=== PATIENT | male | born 1940 | race Caucasian/White ===

== ENCOUNTER 2020-05-30 18:34 | Inpatient (IN) ==
[2020-05-30] MEDS ORDERED: SENNOSIDES 1 TABLET PO PRN (19:05)
[2020-05-30] MEDS ORDERED: 0.9 % SODIUM CHLORIDE 1,000 ML IV ONE (19:05)
[2020-05-30] MEDS ORDERED: ONDANSETRON 4 MG/2 ML VIAL IV PRN (19:05)
[2020-05-30] MEDS ORDERED: LACTULOSE 20 GM/30 ML ORAL.SOL PO PRN (19:05)
[2020-05-30] MEDS ORDERED: CIPROFLOXACIN 400 MG/200 ML BAG IV SCH (20:30)
[2020-05-30] MEDS: 0.9 % SODIUM CHLORIDE 1,000 ML IV SCH (20:39)
[2020-05-30 20:45] LABS: Thyroid Stimulating Hormone 3.94 uIU/mL (0.27-5.01)
--- NOTE | 2020-05-30 20:48 | Internal Med History&Physical ---
HPI History of Present Illness Patient information: Note initiated : 05/30/20 at 8:37 pm Service Date, if different from initiated Date: [] Patient: Clemenet Boyer 79 y/o M admitted on 05/30/20 for chronic pylonephritis. Chief Complaint: [weight loss] History of present illness: Mr. Boyer is a 79 year old male with a history of coronary artery disease status post CABG, colon cancer status post chemotherapy and resection and colostomy placement, chronic Hickman catheter for urinary retention, peripheral vascular disease, hypothyroidism who was sent to the [facility] emergency department for evaluation of a 40 to 50 pound unintentional weight loss over the last year. In the emergency department, there was concern for possible pyelonephritis, possible ureteral stone. The patient was transferred to [facility] for possible urologic intervention. Per the available records, work-up in the ED was remarkable for leukocytosis, acute kidney injury, urinalysis positive for leukocyte esterase and moderate urine bacteria, negative for nitrates. The source of the urinalysis is on clear, the patient does have a Hickman catheter and bag. He does not recall when the Hickman catheter was last exchanged. Reportedly, a CT abdomen and pelvis was done in the ED however the report did not accompany the patient. On arrival to [facility], the patient is afebrile but does have a high-grade temperature. Respiratory rate in the 20s saturating on room air, the patient does not appear to be in any distress. Vitals otherwise unremarkable. The patient appears cachectic. He lives alone in the [place] and follows at the [facility] for primary care. The patient says that about 3 months ago he lost his appetite. Since then his weight loss has accelerated. Patient denies abdominal pain however says he does have chronic epigastric discomfort. There does not appear to be any association with food. He denies fevers and night sweats but says he often gets chilled. He also says that he has been feeling more short of breath recently, it does appear to be worse when he is lying flat. Chest x-ray report from [facility] did not show any acute process. Review of systems Constitutional: positive for unintentional weight loss and fatigue, no fevers Eyes: no vision changes or pain Cardiovascular: no chest pain, no palpitations Respiratory: positive for dyspnea, no cough Gastrointestinal: positive for lack of appetite, no abdominal pain Genitourinary: has chronic hickman catheter Musculoskeletal: no arthralgia or myalgia Integumentary: no skin lesion or wound Neurological: no focal weakness or numbness Psychiatric: no anxiety or depression PFSH PFSH All Active Problems (Updated 05/30/20 @ 20:35 by Sathish Buchanan MD) Decubitus ulcer (Acute) Dyspnea (Acute) Acute kidney injury (Acute) Leukocytosis (Acute) Failure to thrive (Acute) Medical History (Updated 05/30/20 @ 20:35 by Sathish Buchanan MD) Colon cancer Coronary artery disease Peripheral vascular disease Surgical History (Updated 05/30/20 @ 20:34 by Sathish Buchanan MD) Hx of CABG Family History (Updated 05/30/20 @ 20:37 by Sathish Buchanan MD) Father Coronary artery disease Mother Leukemia Coronary artery disease Social History (Updated 05/30/20 @ 20:37 by Sathish Buchanan MD) smoking status: Former smoker MEDS/ALLERGIES Home Medications and Allergies Allergies Allergy/AdvReac Type Severity Reaction Status Date / Time Cephalosporins Allergy Unknown Unverified 09/08/14 20:01 No to Iodine Allergy Unknown Unknown Uncoded 09/08/14 20:01 No to Latex Allergy Unknown Uncoded 09/08/14 20:01 EXAM Constitutional Vitals: Temp Pulse Resp BP Pulse Ox 100 F H 83 26 H 149/77 99 05/30/20 20:01 05/30/20 20:01 05/30/20 20:01 05/30/20 20:01 05/30/20 20:01 Additional findings Additional findings: General: appears cachectic, no distress Head: Atraumatic, normal inspection. Eyes: normal appearance, no scleral icterus. Neck: full ROM Respiratory: no respiratory distress. Cardiovascular: sternotomy scar, normal rate and rhythm, S1, S2. GI/Abdominal: multiple surgical scars, colostomy present, soft, nontender, no guarding. Extremities: full range of motion, nontender, decubitus wound present on buttock. Neurological: CN II-XII intact, intact motor, intact sensation. Psychiatric: normal mood. Skin: warm, normal color DATA Data Completed and Pending Labs: Labs from last 24 hours 05/30/20 05/30/20 13:35 13:35 C-Reactive Protein 26.40 H TSH Pending A/P Narrative A/P Narrative: Assessment: 79 year old male with a history of CAD s/p CABG, hypothyroidism, colon cancer s/p chemotherapy and surgical resection w/ colostomy placement in the (no known recurrence), peripheral vascular disease (reported stents), who has a chronic Hickman catheter for urinary retention presented to the [facility] ED for unintentional weight loss (over 40 lbs in the last year) and subsequently transferred to [facility] for concern of possible pyelonephritis and a possible ureteral stone. The patient may have a UTI but this would be an atypical presentation for pyelonephritis. It is also possible the urine sample at the ED was contaminated since he has a hickman catheter. A UTI would not explain his weight loss, lack of appetite, and fatigue that have progressed over the last several months. #Failure to thrive #Possible UTI #Acute kidney injury: unknown baseline renal function #Leukocytosis #Dyspnea #CAD s/p CABG #Hx of colon cancer s/p chemotherapy and resection #Hx of colostomy #Hx chronic hickman catheter #Hypothyroidism #Decubitus pressure wound Plan -Obtain clean urine sample for UA and urine culture. -Blood cultures. -Zosyn for now d/t high risk of MDRO. -IV fluid-monitor for volume overload. -Follow renal function and urine output. -TSH -Follow CBC -TTE ECHO -Medication reconciliation-resume home meds when clarified. -Review CT scan report when available. -DVT ppx: heparin -Disposition: TBD Time Spent With Patient Time: Total time spent is greater than 50% in coordination of care (as documented) at patient's floor/unit and/or counseling patient: 70
[2020-05-30] MEDS: DOCUSATE SODIUM 100 MG CAPSULE PO SCH (20:58)
[2020-05-30 21:46] LABS: Albumin 3.4 gm/dL (3.2-5.2); Blood Urea Nitrogen 29 mg/dL (8-23); Calcium 8.5 mg/dL (8.6-10.4); Carbon Dioxide 22 mmol/L (22-30); Chloride 95 mmol/L (96-108); Glomerular Filtration Rate 37; Glucose 96 mg/dL (70-105); Phosphorous 2.6 mg/dL (2.5-4.5)
[2020-05-30] MEDS ORDERED: POTASSIUM CHLORIDE 20 MEQ TABLET PO ONE ×3 (22:26→22:57)
[2020-05-30] MEDS ORDERED: 0.9 % SODIUM CHLORIDE 500 ML IV ONE (22:27)
[2020-05-30] MEDS: 0.9 % SODIUM CHLORIDE 10 ML SYRINGE IV SCH (23:03)
[2020-05-30] MEDS: PIPERACILLIN SODIUM/TAZOBACTAM 3.375 GM in DEXTROSE 5% IN WATER 50 ML IV SCH (23:39)
[2020-05-31] MEDS: PIPERACILLIN SODIUM/TAZOBACTAM 3.375 GM in DEXTROSE 5% IN WATER 50 ML IV SCH (05:30)
[2020-05-31] MEDS: 0.9 % SODIUM CHLORIDE 1,000 ML IV SCH ×4 (05:35→21:55)
[2020-05-31] MEDS: 0.9 % SODIUM CHLORIDE 10 ML SYRINGE IV SCH ×3 (05:35→22:32)
[2020-05-31 06:43] LABS: Basophils # (Auto) 0.01 K/mcL (0.00-0.20); Basophils % (Auto) 0.1 % (0.0-2.0); Eosinophils # (Auto) 0 K/mcL (0.00-0.70); Eosinophils % (Auto) 0 % (0.0-7.0); Hematocrit 35.4 % (41.0-55.0); Hemoglobin 11.7 g/dL (13.5-16.5); Lymphocytes # (Auto) 0.12 K/mcL (1.50-4.80); Lymphocytes % (Auto) 0.8 % (15.0-49.0); Mean Cell Volume 93.9 fL (80.0-100.0); Mean Corpuscular HGB Conc 33.1 g/dL (31.0-36.0); Mean Platelet Volume 10.7 fL (7.4-10.4); Monocytes # (Auto) 0.47 K/mcL (0.10-0.90); Monocytes % (Auto) 3.2 % (1.0-12.0); Neutrophils % (Auto) 95.9 % (38.0-78.0); Platelet Count 129 K/mcL (140-440); RBC 3.77 M/mcL (4.50-5.90); Red Cell Distribution Width 13.9 % (11.5-14.5); WBC 14.7 K/mcL (4.5-11.0)
[2020-05-31 06:45] LABS: Appearance,Urine Cloudy (Clear); Bacteria,Urine FEW /hpf (0); Bilirubin,Urine Negative (Negative); Color,Urine Yellow; Culture Indicated,Urine yes; Glucose,Urine (UA) Negative (Negative); Ketones,Urine Negative (Negative); Leukocyte Esterase,Urine 3+(Large) /ug (Negative); Nitrate,Urine Negative (Negative); PH,Urine 6.5 (5.0-9.0); Protein,Urine 100 mg/dL (Negative); Urine Blood 3+(Large) ery/mcL (Negative); Urine RBC 58 /hpf (0-3); Urine Squamous Epithelial Cell 2 /hpf (0-4); Urine Transitional Epi Cells 2 /hpf (0-2); Urine WBC > 182 /hpf (0-4); Urobilinogen,Urine Normal
[2020-05-31 07:14] LABS: ALT/SGPT 10 U/L (<40); AST/SGOT 39 U/L (<40); Albumin 2.6 gm/dL (3.2-5.2); Albumin/Globulin Ratio 0.6 (1.0-2.3); Alkaline Phosphatase 88 U/L (39-117); Bilirubin,Direct < 0.2 mg/dL (<0.3); Bilirubin,Total 0.5 mg/dL (0.1-1.0); Blood Urea Nitrogen 26 mg/dL (8-23); Calcium 8.1 mg/dL (8.6-10.4); Carbon Dioxide 18 mmol/L (22-30); Chloride 102 mmol/L (96-108); Globulin 4.2 gm/dL (2.2-3.7); Glomerular Filtration Rate 34; Glucose 80 mg/dL (70-105); Lactate Dehydrogenase 332 U/L (135-225); Phosphorous 2.8 mg/dL (2.5-4.5); Triglycerides 98 mg/dL (<150); Uric Acid 5.4 mg/dL (2.5-8.0)
[2020-05-31] MEDS ORDERED: MAGNESIUM SULFATE 2 GM/50 ML BAG IV ONE (08:17)
[2020-05-31] MEDS: HEPARIN 5,000 UNIT/ML VIAL SQ SCH ×2 (08:45→21:42)
[2020-05-31] MEDS: DOCUSATE SODIUM 100 MG CAPSULE PO SCH ×2 (08:48→21:43)
--- NOTE | 2020-05-31 11:47 | Internal Med Progress Note ---
SUBJECTIVE Subjective Patient information: Note initiated : 05/31/20 at 11:40 am Service Date, if different from initiated Date: [] Patient: Clemente Boyer 79 y/o M admitted on 05/30/20 for chronic pylonephritis. Chief Complaint: [] Principal diagnosis: Failure to thrive Interval history: Mr. Boyer is a 79 year old male with a history of coronary artery disease status post CABG, colon cancer status post chemotherapy and re section and colostomy placement, chronic Hickman catheter for urinary retention, peripheral vascular disease, hypothyroidism who was sent to the [facility] emergency department for evaluation of a 40 to 50 pound unintentional weight loss over the last year. In the emergency department, there was concern for possible pyelonephritis, possible ureteral stone. The patient was transferred to [facility] for possible urologic intervention. Per the available records, work-up in the ED was remarkable for leukocytosis, acute kidney injury, urinalysis positive for leukocyte esterase and moderate urine bacteria, negative for nitrates. The source of the urinalysis is on clear, the patient does have a Hickman catheter and bag. He does not recall when the Hickman catheter was last exchanged. Reportedly, a CT abdomen and pelvis was done in the ED however the report did not accompany the patient. On arrival to [facility], the patient is afebrile but does have a high-grade temperature. Respiratory rate in the 20s saturating on room air, the patient does not appear to be in any distress. Vitals otherwise unremarkable. The patient appears cachectic. He lives alone in the [place] and follows at the [place] for primary care. The patient says that about 3 months ago he lost his appetite. Since then his weight loss has accelerated. Patient denies abdominal pain however says he does have chronic epigastric discomfort. There does not appear to be any association with food. He denies fevers and night sweats but says he often gets chilled. He also says that he has been feeling more short of breath recently, it does appear to be worse when he is lying flat. Chest x-ray report from [facility] did not show any acute process. 05/31 Feels a little better, had a fever this morning, hemodynamically stable. Reviewed CT scan report from [facility]-severe right hydronephrosis and hydroureter without evidence of obstructing stone. Urology consulted and will consider a scope for tomorrow for possible stent for hydronephrosis. Ok for diet today. Constitutional Vitals: Vital Signs Temp Pulse Resp BP Pulse Ox 100.7 F H 66 31 H 113/76 100 05/31/20 08:00 05/31/20 08:00 05/31/20 11:02 05/31/20 10:00 05/31/20 08:00 Period Temp Pulse Resp BP Sys/Santiago Pulse Ox Last 24 Hr 97.1 F-100.7 F 62-99 18-36 100-162/62-117 95-100 Intake and Output 05/30/20 05/31/20 05/31/20 21:59 05:59 13:59 Intake Total 40 625 1000 Output Total 1 750 Balance 39 -125 1000 Weight 48.852 kg Intake & Output: Intake & Output 05/30/20 05/31/20 05/31/20 21:59 05:59 13:59 Intake Total 40 625 1000 Output Total 1 750 Balance 39 -125 1000 Weight 48.852 kg Intake: IV 40 550 1000 Sodium Chloride 0.9% 1,000 ml @ 1000 100 mls/hr IV .Q10H ROSITA Rx#: [id number] Sodium Chloride 0.9% 500 ml @ 500 Wide Open IV BOLUS ONE Rx#: [id number] Zosyn 3.375 gm In Dextrose 5% 50 in Water 50 ml @ 100 mls/hr IV Q6H ROSITA Rx#:[id number] Oral 0 75 0 Output: Urine Catheter Amount 300 # of times incontinent of urine 1 Stool 450 Other: Meal NPO Percent of Meal Consumed NPO Urine Appearance Cloudy Urine Color Tea Colored Urine Odor Strong # Voids 1 Additional findings Additional findings: General: appears malnourished Head: Atraumatic, normal inspection. Eyes: normal appearance, no scleral icterus. Neck: full ROM Respiratory: no respiratory distress. Cardiovascular: sternotomy scar, normal rate and rhythm, S1, S2. GI/Abdominal: colostomy present, soft, nontender, no guarding. Genitourinary: hickman catheter Extremities: full range of motion, nontender. Neurological: CN II-XII intact, intact motor, intact sensation. Psychiatric: normal mood. Skin: warm, normal color OBJ DATA Labs CBC & Chem 7: 05/31/20 05:07 05/31/20 05:07 Labs: Abnormal Lab Results 05/31/20 05/31/20 05/31/20 10:27 05:07 05:07 WBC 14.7 H RBC 3.77 L Hgb 11.7 L Hct 35.4 L Plt Count 129 L MPV 10.7 H Neut % (Auto) 95.9 H Lymph % (Auto) 0.8 L Lymph # (Auto) 0.12 L Absolute Neutrophils 14.09 H VBG Lactic Acid 2.2 H Sodium Potassium Chloride Carbon Dioxide 18 L BUN 26 H Creatinine 1.8 H Calcium 8.1 L Magnesium 1.3 L Lactate Dehydrogenase 332 H C-Reactive Protein Albumin 2.6 L Globulin 4.2 H Albumin/Globulin Ratio 0.6 L Urine Appearance Urine Protein Urine Occult Blood Ur Leukocyte Esterase Urine RBC Urine WBC Urine Bacteria 05/30/20 05/30/20 05/30/20 20:46 20:45 13:35 WBC RBC Hgb Hct Plt Count MPV Neut % (Auto) Lymph % (Auto) Lymph # (Auto) Absolute Neutrophils VBG Lactic Acid 2.2 H Sodium 130 L Potassium 3.2 L Chloride 95 L Carbon Dioxide BUN 29 H Creatinine 1.7 H Calcium 8.5 L Magnesium Lactate Dehydrogenase C-Reactive Protein 26.40 H Albumin Globulin Albumin/Globulin Ratio Urine Appearance Urine Protein Urine Occult Blood Ur Leukocyte Esterase Urine RBC Urine WBC Urine Bacteria 05/30/20 00:05 WBC RBC Hgb Hct Plt Count MPV Neut % (Auto) Lymph % (Auto) Lymph # (Auto) Absolute Neutrophils VBG Lactic Acid Sodium Potassium Chloride Carbon Dioxide BUN Creatinine Calcium Magnesium Lactate Dehydrogenase C-Reactive Protein Albumin Globulin Albumin/Globulin Ratio Urine Appearance Cloudy A Urine Protein 100 A Urine Occult Blood 3+(large) A Ur Leukocyte Esterase 3+(large) A Urine RBC 58 H Urine WBC > 182 H Urine Bacteria Few A Meds: Medications Docusate Sodium (Docusate Sodium 100 Mg Capsule) 100 mg PO BID [facility] Last Admin: 05/31/20 08:48 Dose: Not Given Documented by: Heparin Sodium (Porcine) (Heparin 5,000 Unit/Ml Vial) 5,000 unit SQ Q12 [facility] Last Admin: 05/31/20 08:45 Dose: 5,000 unit Documented by: Sodium Chloride (Sodium Chloride 0.9%) 1,000 mls @ 100 mls/hr IV .Q10H [facility] Last Admin: 05/31/20 08:04 Dose: 100 mls/hr Documented by: Piperacillin Sod/Tazobactam (Sod 2.25 gm/ Dextrose) 50 mls @ 100 mls/hr IV Q6H ROSITA Lactulose (Lactulose 20 Gm/30 Ml Oral.Yolanda) 10 gm PO DAILYP PRN PRN Reason: Constipation Ondansetron HCl (Ondansetron 4 Mg/2 Ml Vial) 4 mg IV Q4HP PRN; Protocol PRN Reason: Nausea And Vomiting Senna (Sennosides 1 Tablet) 2 tab PO HSP PRN PRN Reason: Constipation Sodium Chloride (0.9 % Sodium Chloride 10 Ml Syringe) 10 ml IV Q8 [facility] Last Admin: 05/31/20 05:35 Dose: Not Given Documented by: A/P Narrative A/P Narrative: Assessment: 79 year old male with a history of CAD s/p CABG, hypothyroidism, colon cancer s/p chemotherapy and surgical resection w/ colostomy placement in the (no known recurrence), peripheral vascular disease (reported stents), who has a chronic Hickman catheter for urinary retention presented to the [facility] ED for unintentional weight loss (over 40 lbs in the last year) and subsequently transferred to [facility] for concern of possible pyelonephritis and a possible ureteral stone. The patient may have a UTI but this would be an atypical presentation for pyelonephritis. It is also possible the urine sample at the ED was contaminated since he has a hickman catheter. A UTI would not explain his weight loss, lack of appetite, and fatigue that have progressed over the last several months. #Failure to thrive #Probable UTI #Acute kidney injury vs CKD: unknown baseline renal function #Severe hydronephrosis #Leukocytosis: [place] #Dyspnea: TTE showed grade 1 diastolic dysfunction, clear chest xray #CAD s/p CABG #Hx of colon cancer s/p chemotherapy and resection #Hx of colostomy #Hx chronic hickman catheter #Hypothyroidism #Decubitus pressure wound Plan -Zosyn, follow urine and blood cultures. -IV fluid-monitor volume status. -Follow renal function and urine output. -Avoid nephrotoxic meds, holding home spironolactone (not sure if taking). -Urology consulted-possible stent tomorrow. -NPO at midnight. -Follow CBC -Levothyroxine -DVT ppx: heparin -Disposition: TBD Time Spent With Patient Time: Total time spent is greater than 50% in coordination of care (as documented) at patient's floor/unit and/or counseling patient:
[2020-05-31] MEDS ORDERED: ACETAMINOPHEN 500 MG TABLET PO PRN (11:55)
[2020-05-31] MEDS: PIPERACILLIN SODIUM/TAZOBACTAM 2.25 GM in DEXTROSE 5% IN WATER 50 ML IV SCH ×2 (11:56→17:33)
--- NOTE | 2020-05-31 13:05 | General Surgery Consult Note ---
HPI Data of Consult Primary Care Provider: Debbie Choi Consult Narrative Patient Information: Note initiated : 05/31/20 at 12:54 pm Service Date, if different from initiated Date: [] Patient: Clemente Boyer 79 y/o M admitted on 05/30/20 for chronic pylonephritis. He was brought to the emergency room because of a rapid decrease in appetite was poor food intake, recent increase in weight loss and weakness. He was trouble even transferring in his own home. There is been a 50 pound weight loss in the last year and then he was taking nothing by mouth either fluids or solids for the 48 hours prior to transfer to the emergency room. At that point there was a question that he may have a serious urinary tract infection with fever and a white count of 23,000. His creatinine is gone from 0.922.2. He does have a history of colon cancer and had undergone a partial colectomy. He also has a history of enlarged prostate and underwent what sounds like an endoscopic prostate procedure. In the emergency room a CT showed a grossly dilated hydronephrotic right kidney and ureter down to the bladder level but no stone seen at that point. He and his son both say that he ended up going to a hospital in [place] in December because of the obstructed kidney and the suspicion that there was a stone. He underwent cystoscopy with a right retrograde study and the ureter was open with no evidence of stone or blockage. This may represent old hydronephrosis that has left a residual dilation. Since the retrograde study the chronic right flank pain he had been having up to that point has resolved and he has been essentially pain-free in the right flank since December. He may also have had a stone on that side that had passed prior to the surgery relieving the pain and the blockage. He does have some small stones in the left kidney. His creatinine was 1.7 yesterday and 1.8 today, both down from the emergency room creatinine prior to transfer here. At this point he has good appetite, is eating well and pain-free. He is afebrile with current urine cultures pending. He also has a history of a neurogenic bladder with incontinence. A Yeh catheter had been inserted years ago is much for my bladder control as anything else. He has not had a urinary infection with a Yeh in place but it appears that he does have 1 now. We had discussed the possibility of doing cystoscopy with a retrograde study but since he is so comfortable and has clinically improved on antibiotics and IV fluids I would do a nuclear study looking at differential functions. If it shows significant loss of function on the right side I would consider doing a retrograde at that point. Chief Complaint: [] cc:: CC: Sathish Buchanan MD [facility] All Active Problems (Updated 05/31/20 @ 13:22 by Clemente Dixon MD) Hydronephrosis (Acute) UTI (urinary tract infection) (Acute) Decubitus ulcer (Acute) Dyspnea (Acute) Acute kidney injury (Acute) Leukocytosis (Acute) Failure to thrive (Acute) Medical History Colon cancer Coronary artery disease Peripheral vascular disease Surgical History Hx of CABG Family History Father Coronary artery disease Mother Leukemia Coronary artery disease Social History smoking status: Former smoker MEDS/ALLERGIES Home Medications and Allergies Home Medications Medication Instructions Recorded Confirmed Type acetaminophen 500 mg PO Q6H PRN 05/31/20 05/31/20 History ascorbic acid (vitamin C) 250 mg PO QAM 05/31/20 05/31/20 History fenofibrate 145 mg PO QAM 05/31/20 05/31/20 History ferrous sulfate 325 mg PO QDAY 05/31/20 05/31/20 History hydrocodone-acetaminophen 1 tab PO QDAY PRN 05/31/20 05/31/20 History levothyroxine 112 mcg PO QAM 05/31/20 05/31/20 History magnesium oxide 400 mg PO BID PRN 05/31/20 05/31/20 History ondansetron HCl 4 mg PO QDAY PRN 05/31/20 05/31/20 History oxybutynin chloride 5 mg PO QDAY 05/31/20 05/31/20 History spironolactone 25 mg PO QDAY 05/31/20 05/31/20 History Allergies Allergy/AdvReac Type Severity Reaction Status Date / Time cephalexin AdvReac Intermediate Hallucinati Verified 05/31/20 06:53 ng doxycycline AdvReac Intermediate Hallucinati Verified 05/31/20 06:53 ng morphine AdvReac Intermediate Hallucinati Verified 05/31/20 06:53 ng Vsxuhaq-Yxh-Msa Reductase AdvReac Intermediate Muscle Pain Verified 05/31/20 07:10 Inhibitor Cephalosporins AdvReac Mild Sun Verified 05/31/20 06:12 Sensitivity Physical Examination Vital Signs Vital signs: Temp Pulse Resp BP Pulse Ox 100.7 F H 66 31 H 113/76 100 05/31/20 08:00 05/31/20 08:00 05/31/20 11:02 05/31/20 10:00 05/31/20 08:00 General physical appearance General physical exam: well developed and no distress Eyes Eye exam: normal ocular movement Head Head exam IM: Present normocephalic Cardiovascular Cardiovascular exam IM: Present normal rate and rhythm Respiratory Respiratory exam: normal expansion and normal respiratory effort Results Labs Result diagrams: 05/31/20 05:07 05/31/20 05:07 Labs: Abnormal lab results 05/30/20 05/30/20 05/30/20 Range/Units 00:05 13:35 20:45 WBC (4.5-11.0) K/mcL RBC (4.50-5.90) M/mcL Hgb (13.5-16.5) g/dL Hct (41.0-55.0) % Plt Count (140-440) K/mcL MPV (7.4-10.4) fL Neut % (Auto) (38.0-78.0) % Lymph % (Auto) (15.0-49.0) % Lymph # (Auto) (1.50-4.80) K/mcL Absolute Neutrophils (1.80-8.00) K/mcL VBG Lactic Acid (0.5-2.0) mmol/L Sodium 130 L (133-145) mmol/L Potassium 3.2 L (3.3-5.1) mmol/L Chloride 95 L (96-108) mmol/L Carbon Dioxide (22-30) mmol/L BUN 29 H (8-23) mg/dL Creatinine 1.7 H (0.7-1.2) mg/dL Calcium 8.5 L (8.6-10.4) mg/dL Magnesium (1.6-2.5) mg/dL Lactate Dehydrogenase (135-225) U/L C-Reactive Protein 26.40 H (0.03-0.80) mg/dL Albumin (3.2-5.2) gm/dL Globulin (2.2-3.7) gm/dL Albumin/Globulin Ratio (1.0-2.3) Urine Appearance Cloudy A (Clear) Urine Protein 100 A (Negative) mg/dL Urine Occult Blood 3+(large) A (Negative) thomas/mcL Ur Leukocyte Esterase 3+(large) A (Negative) /ug Urine RBC 58 H (0-3) /hpf Urine WBC > 182 H (0-4) /hpf Urine Bacteria Few A (0) /hpf 05/30/20 05/31/20 05/31/20 Range/Units 20:46 05:07 05:07 WBC 14.7 H (4.5-11.0) K/mcL RBC 3.77 L (4.50-5.90) M/mcL Hgb 11.7 L (13.5-16.5) g/dL Hct 35.4 L (41.0-55.0) % Plt Count 129 L (140-440) K/mcL MPV 10.7 H (7.4-10.4) fL Neut % (Auto) 95.9 H (38.0-78.0) % Lymph % (Auto) 0.8 L (15.0-49.0) % Lymph # (Auto) 0.12 L (1.50-4.80) K/mcL Absolute Neutrophils 14.09 H (1.80-8.00) K/mcL VBG Lactic Acid 2.2 H (0.5-2.0) mmol/L Sodium (133-145) mmol/L Potassium (3.3-5.1) mmol/L Chloride (96-108) mmol/L Carbon Dioxide 18 L (22-30) mmol/L BUN 26 H (8-23) mg/dL Creatinine 1.8 H (0.7-1.2) mg/dL Calcium 8.1 L (8.6-10.4) mg/dL Magnesium 1.3 L (1.6-2.5) mg/dL Lactate Dehydrogenase 332 H (135-225) U/L C-Reactive Protein (0.03-0.80) mg/dL Albumin 2.6 L (3.2-5.2) gm/dL Globulin 4.2 H (2.2-3.7) gm/dL Albumin/Globulin Ratio 0.6 L (1.0-2.3) Urine Appearance (Clear) Urine Protein (Negative) mg/dL Urine Occult Blood (Negative) thomas/mcL Ur Leukocyte Esterase (Negative) /ug Urine RBC (0-3) /hpf Urine WBC (0-4) /hpf Urine Bacteria (0) /hpf 05/31/20 Range/Units 10:27 WBC (4.5-11.0) K/mcL RBC (4.50-5.90) M/mcL Hgb (13.5-16.5) g/dL Hct (41.0-55.0) % Plt Count (140-440) K/mcL MPV (7.4-10.4) fL Neut % (Auto) (38.0-78.0) % Lymph % (Auto) (15.0-49.0) % Lymph # (Auto) (1.50-4.80) K/mcL Absolute Neutrophils (1.80-8.00) K/mcL VBG Lactic Acid 2.2 H (0.5-2.0) mmol/L Sodium (133-145) mmol/L Potassium (3.3-5.1) mmol/L Chloride (96-108) mmol/L Carbon Dioxide (22-30) mmol/L BUN (8-23) mg/dL Creatinine (0.7-1.2) mg/dL Calcium (8.6-10.4) mg/dL Magnesium (1.6-2.5) mg/dL Lactate Dehydrogenase (135-225) U/L C-Reactive Protein (0.03-0.80) mg/dL Albumin (3.2-5.2) gm/dL Globulin (2.2-3.7) gm/dL Albumin/Globulin Ratio (1.0-2.3) Urine Appearance (Clear) Urine Protein (Negative) mg/dL Urine Occult Blood (Negative) thomas/mcL Ur Leukocyte Esterase (Negative) /ug Urine RBC (0-3) /hpf Urine WBC (0-4) /hpf Urine Bacteria (0) /hpf Diabetes panel 05/30/20 05/31/20 Range/Units 20:45 05:07 Sodium 130 L 133 (133-145) mmol/L Potassium 3.2 L 4.2 (3.3-5.1) mmol/L Chloride 95 L 102 (96-108) mmol/L Carbon Dioxide 22 18 L (22-30) mmol/L BUN 29 H 26 H (8-23) mg/dL Creatinine 1.7 H 1.8 H (0.7-1.2) mg/dL Glucose 96 80 (70-105) mg/dL Calcium 8.5 L 8.1 L (8.6-10.4) mg/dL AST 39 (<40) U/L ALT 10 (<40) U/L Alkaline Phosphatase 88 (39-117) U/L Total Protein 6.8 (5.9-8.4) gm/dL Albumin 3.4 2.6 L (3.2-5.2) gm/dL Triglycerides 98 (<150) mg/dL Thyroid panel 05/30/20 Range/Units 13:35 TSH 3.94 (0.27-5.01) uIU/mL Calcium panel 05/30/20 05/31/20 Range/Units 20:45 05:07 Calcium 8.5 L 8.1 L (8.6-10.4) mg/dL Phosphorus 2.6 2.8 (2.5-4.5) mg/dL Albumin 3.4 2.6 L (3.2-5.2) gm/dL Pituitary panel 05/30/20 05/30/20 05/31/20 Range/Units 13:35 20:45 05:07 Sodium 130 L 133 (133-145) mmol/L Potassium 3.2 L 4.2 (3.3-5.1) mmol/L Chloride 95 L 102 (96-108) mmol/L Carbon Dioxide 22 18 L (22-30) mmol/L BUN 29 H 26 H (8-23) mg/dL Creatinine 1.7 H 1.8 H (0.7-1.2) mg/dL Glucose 96 80 (70-105) mg/dL Calcium 8.5 L 8.1 L (8.6-10.4) mg/dL TSH 3.94 (0.27-5.01) uIU/mL Adrenal panel 05/30/20 05/31/20 Range/Units 20:45 05:07 Sodium 130 L 133 (133-145) mmol/L Potassium 3.2 L 4.2 (3.3-5.1) mmol/L Chloride 95 L 102 (96-108) mmol/L Carbon Dioxide 22 18 L (22-30) mmol/L BUN 29 H 26 H (8-23) mg/dL Creatinine 1.7 H 1.8 H (0.7-1.2) mg/dL Glucose 96 80 (70-105) mg/dL Calcium 8.5 L 8.1 L (8.6-10.4) mg/dL Total Bilirubin 0.5 (0.1-1.0) mg/dL AST 39 (<40) U/L ALT 10 (<40) U/L Alkaline Phosphatase 88 (39-117) U/L Total Protein 6.8 (5.9-8.4) gm/dL Albumin 3.4 2.6 L (3.2-5.2) gm/dL All other labs normal. A/P Assessment and plan (1) UTI (urinary tract infection): Status: Acute Comment: Continue current antibiotics pending urine culture (2) Hydronephrosis: Status: Acute Comment: Nuclear study for differential functions if available Time Spent With Patient Time: Total time spent is greater than 50% in coordination of care (as documented) at patient's floor/unit and/or counseling patient:45 min
[2020-06-01] MEDS: PIPERACILLIN SODIUM/TAZOBACTAM 2.25 GM in DEXTROSE 5% IN WATER 50 ML IV SCH ×4 (00:38→17:47)
[2020-06-01] MEDS: 0.9 % SODIUM CHLORIDE 1,000 ML IV SCH ×2 (01:42→09:27)
[2020-06-01] MEDS: 0.9 % SODIUM CHLORIDE 10 ML SYRINGE IV SCH ×2 (05:44→14:44)
[2020-06-01 06:58] LABS: Basophils # (Auto) 0.01 K/mcL (0.00-0.20); Basophils % (Auto) 0.2 % (0.0-2.0); Eosinophils # (Auto) 0.04 K/mcL (0.00-0.70); Eosinophils % (Auto) 0.7 % (0.0-7.0); Hematocrit 34.8 % (41.0-55.0); Hemoglobin 11.2 g/dL (13.5-16.5); Lymphocytes # (Auto) 0.19 K/mcL (1.50-4.80); Lymphocytes % (Auto) 3.1 % (15.0-49.0); Mean Cell Volume 95.6 fL (80.0-100.0); Mean Corpuscular HGB Conc 32.2 g/dL (31.0-36.0); Mean Platelet Volume 10.6 fL (7.4-10.4); Monocytes # (Auto) 0.27 K/mcL (0.10-0.90); Monocytes % (Auto) 4.4 % (1.0-12.0); Neutrophils % (Auto) 91.6 % (38.0-78.0); Platelet Count 106 K/mcL (140-440); RBC 3.64 M/mcL (4.50-5.90); Red Cell Distribution Width 14.3 % (11.5-14.5); WBC 6.2 K/mcL (4.5-11.0)
[2020-06-01 07:13] LABS: ALT/SGPT 11 U/L (<40); AST/SGOT 32 U/L (<40); Albumin 2.5 gm/dL (3.2-5.2); Albumin/Globulin Ratio 0.7 (1.0-2.3); Alkaline Phosphatase 76 U/L (39-117); Bilirubin,Direct < 0.2 mg/dL (<0.3); Bilirubin,Total 0.3 mg/dL (0.1-1.0); Blood Urea Nitrogen 27 mg/dL (8-23); Calcium 8.2 mg/dL (8.6-10.4); Carbon Dioxide 23 mmol/L (22-30); Chloride 101 mmol/L (96-108); Globulin 3.8 gm/dL (2.2-3.7); Glomerular Filtration Rate 43; Glucose 98 mg/dL (70-105); Lactate Dehydrogenase 162 U/L (135-225); Phosphorous 2.5 mg/dL (2.5-4.5); Triglycerides 166 mg/dL (<150); Uric Acid 4.1 mg/dL (2.5-8.0)
[2020-06-01] MEDS: DOCUSATE SODIUM 100 MG CAPSULE PO SCH ×2 (07:13→20:15)
[2020-06-01] MEDS: HEPARIN 5,000 UNIT/ML VIAL SQ SCH (07:13)
[2020-06-01] MEDS ORDERED: LEVOTHYROXINE SODIUM 112 MCG TABLET PO SCH (07:30)
[2020-06-01] MEDS ORDERED: FERROUS SULFATE 325 MG TABLET PO SCH (08:00)
[2020-06-01] MEDS ORDERED: MAGNESIUM SULFATE 2 GM/50 ML BAG IV ONE (08:37)
[2020-06-01] MEDS ORDERED: POTASSIUM CHLORIDE 20 MEQ TABLET PO ONE ×2 (08:37→19:16)
[2020-06-01] MEDS ORDERED: FENOFIBRATE 43 MG CAPSULE PO SCH (09:00)
--- NOTE | 2020-06-01 09:38 | General Surgery Progress Note ---
SUBJECTIVE Subjective Patient information: Note initiated : 06/01/20 at 9:31 am Service Date, if different from initiated Date: [] Patient: Clemente Boyer 79 y/o M admitted on 05/30/20 for chronic pylonephritis. Who is resting comfortably, tolerating diet reasonably well but still weak and has difficulty ambulating without assistance. He denies any right-sided flank pain. A differential function nuclear renogram would be helpful but that is not something gets available here. He would be able to do that after discharge and in the absence of flank pain and a reasonably normal renal function it would be safe to discharge him without a surgical procedure on that right kidney until we see what kind of function is there and if it is worth trying to preserve. Chief Complaint: [] Principal diagnosis: Failure to thrive Constitutional Vitals: Vital Signs Temp Pulse Resp BP Pulse Ox 98.8 F 72 22 121/78 97 06/01/20 08:01 05/31/20 14:30 06/01/20 08:05 06/01/20 08:01 06/01/20 08:01 Period Temp Pulse Resp BP Sys/Santiago Pulse Ox Last 24 Hr 97.8 F-99.9 F 72 16-35 95-133/57-78 95-98 Intake and Output 05/31/20 06/01/20 06/01/20 21:59 05:59 13:59 Intake Total 2572 143 4293 Output Total 950 500 Balance 077 171 4910 Weight 113 lb 1.6 oz Intake & Output: Intake & Output 05/31/20 06/01/20 06/01/20 21:59 05:59 13:59 Intake Total 2394 685 2362 Output Total 950 500 Balance 263 054 9014 Weight 113 lb 1.6 oz Intake: Nourishment/Supplement quantity 225 (ml) IV 1050 50 1050 Sodium Chloride 0.9% 1,000 ml @ 1000 1000 100 mls/hr IV .Q10H ROSITA Rx#: [id number] Zosyn 2.25 gm In Dextrose 5% in 50 50 50 Water 50 ml @ 100 mls/hr IV Q6H ROSITA Rx#:[id number] Oral 475 475 Output: Urine Catheter Amount 600 500 Stool 350 Other: Meal Dinner Percent of Meal Consumed 0% Feeding Ability Assist with Tray Set Up Nourishment/Supplement name Ensure Urine Appearance Cloudy Cloudy Sediment Uretheral (Yeh) Cloudy Cloudy Urine Color Light [place] Bright Yellow Uretheral (Yeh) Bright Yellow Bright Yellow Urine Odor Strong Uretheral (Yeh) Strong Stool Size Copious Stool Color Yellow Green Stool Consistency Liquid Watery A/P Assessment and plan (1) UTI (urinary tract infection): Status: Acute Comment: #1 continue current antibiotics pending results of sensitivities 2. Can discharge on oral antibiotics when cleared of other medical problems 3. Schedule nuclear renal scan with differential functions as an outpatient at [facility] 4. Follow-up here after the renal scan Time Spent With Patient Time: Total time spent is greater than 50% in coordination of care (as documented) at patient's floor/unit and/or counseling patient:
--- NOTE | 2020-06-01 11:34 | Internal Med Progress Note ---
SUBJECTIVE Subjective Patient information: Note initiated : 06/01/20 at 11:17 am Service Date, if different from initiated Date: [] Patient: Clemente Boyer 79 y/o M admitted on 05/30/20 for chronic pylonephritis. Chief Complaint: [] Principal diagnosis: Failure to thrive Interval history: Mr. Boyer is a 79 year old male with a history of coronary artery disease status post CABG, colon cancer status post chemotherapy and re section and colostomy placement, chronic Hickman catheter for urinary retention, peripheral vascular disease, hypothyroidism who was sent to the [facility] emergency department for evaluation of a 40 to 50 pound unintentional weight loss over the last year. In the emergency department, there was concern for possible pyelonephritis, possible ureteral stone. The patient was transferred to [facility] for possible urologic intervention. Per the available records, work-up in the ED was remarkable for leukocytosis, acute kidney injury, urinalysis positive for leukocyte esterase and moderate urine bacteria, negative for nitrates. The source of the urinalysis is on clear, the patient does have a Hickman catheter and bag. He does not recall when the Hickman catheter was last exchanged. Reportedly, a CT abdomen and pelvis was done in the ED however the report did not accompany the patient. On arrival to [facility], the patient is afebrile but does have a high-grade temperature. Respiratory rate in the 20s saturating on room air, the patient does not appear to be in any distress. Vitals otherwise unremarkable. The patient appears cachectic. He lives alone in the [place] and follows at the [facility] for primary care. The patient says that about 3 months ago he lost his appetite. Since then his weight loss has accelerated. Patient denies abdominal pain however says he does have chronic epigastric discomfort. There does not appear to be any association with food. He denies fevers and night sweats but says he often gets chilled. He also says that he has been feeling more short of breath recently, it does appear to be worse when he is lying flat. Chest x-ray report from [facility] did not show any acute process. 05/31 Feels a little better, had a fever this morning, hemodynamically stable. Reviewed CT scan report from [facility]-severe right hydronephrosis and hydroureter without evidence of obstructing stone. Urology consulted and will consider a scope for tomorrow for possible stent for hydronephrosis. Ok for diet today. 06/01 Continued improvement in appetite and generally feeling much better. Urology feels hydronephrosis is chronic, does not plan on procedural intervention at this time and recommended a differential function nuclear renogram study but not available at [facility]. It could be done after discharge [facility]. Renal function improving, hypokalemia and hypomagnesemia replaced. Continues on Zosyn. Constitutional Vitals: Vital Signs Temp Pulse Resp BP Pulse Ox 98.8 F 72 17 110/81 97 06/01/20 08:01 05/31/20 14:30 06/01/20 10:36 06/01/20 10:09 06/01/20 08:01 Period Temp Pulse Resp BP Sys/Santiago Pulse Ox Last 24 Hr 97.8 F-99.9 F 72 16-35 95-133/57-81 95-98 Intake and Output 05/31/20 06/01/20 06/01/20 21:59 05:59 13:59 Intake Total 7204 642 9571 Output Total 950 500 425 Balance 785 895 0499 Weight 51.301 kg Intake & Output: Intake & Output 05/31/20 06/01/20 06/01/20 21:59 05:59 13:59 Intake Total 7134 953 7554 Output Total 950 500 425 Balance 483 836 2115 Weight 51.301 kg Intake: Nourishment/Supplement quantity 225 (ml) IV 1050 50 1050 Sodium Chloride 0.9% 1,000 ml @ 1000 1000 100 mls/hr IV .Q10H ROSITA Rx#: [id number] Zosyn 2.25 gm In Dextrose 5% in 50 50 50 Water 50 ml @ 100 mls/hr IV Q6H ROSITA Rx#:[id number] Oral [id number] 9084 Output: Urine Catheter Amount 600 500 Stool 350 425 Other: Meal Dinner Breakfast Percent of Meal Consumed 0% 75% Feeding Ability Assist with Tray Set Up Nourishment/Supplement name Ensure Urine Appearance Cloudy Cloudy Sediment Uretheral (Hickman) Cloudy Cloudy Urine Color Light [place] Bright Yellow Uretheral (Hickman) Bright Yellow Bright Yellow Urine Odor Strong Uretheral (Hickman) Strong Stool Size Copious Stool Color Yellow Brown Green Green Stool Consistency Liquid Liquid Watery Additional findings Additional findings: Head: Atraumatic, normal inspection. Eyes: normal appearance, no scleral icterus. Neck: full ROM Respiratory: no respiratory distress. Cardiovascular: normal rate and rhythm, S1, S2. GI/Abdominal: colostomy present, soft, nontender, no guarding. Genitourinary: hickman catheter Extremities: full range of motion, nontender. Neurological: CN II-XII intact, intact motor, intact sensation. Psychiatric: normal mood. Skin: warm, normal color OBJ DATA Labs CBC & Chem 7: 06/01/20 05:08 06/01/20 05:07 Labs: Abnormal Lab Results 06/01/20 06/01/20 05/31/20 05:08 05:07 10:27 WBC RBC 3.64 L Hgb 11.2 L Hct 34.8 L Plt Count 106 L MPV 10.6 H Neut % (Auto) 91.6 H Lymph % (Auto) 3.1 L Lymph # (Auto) 0.19 L Absolute Neutrophils VBG Lactic Acid 2.2 H Sodium Potassium 3.0 L Chloride Carbon Dioxide BUN 27 H Creatinine 1.5 H Calcium 8.2 L Magnesium 1.4 L Lactate Dehydrogenase C-Reactive Protein Albumin 2.5 L Globulin 3.8 H Albumin/Globulin Ratio 0.7 L Triglycerides 166 H Urine Appearance Urine Protein Urine Occult Blood Ur Leukocyte Esterase Urine RBC Urine WBC Urine Bacteria 05/31/20 05/31/20 05/30/20 05:07 05:07 20:46 WBC 14.7 H RBC 3.77 L Hgb 11.7 L Hct 35.4 L Plt Count 129 L MPV 10.7 H Neut % (Auto) 95.9 H Lymph % (Auto) 0.8 L Lymph # (Auto) 0.12 L Absolute Neutrophils 14.09 H VBG Lactic Acid 2.2 H Sodium Potassium Chloride Carbon Dioxide 18 L BUN 26 H Creatinine 1.8 H Calcium 8.1 L Magnesium 1.3 L Lactate Dehydrogenase 332 H C-Reactive Protein Albumin 2.6 L Globulin 4.2 H Albumin/Globulin Ratio 0.6 L Triglycerides Urine Appearance Urine Protein Urine Occult Blood Ur Leukocyte Esterase Urine RBC Urine WBC Urine Bacteria 05/30/20 05/30/20 05/30/20 20:45 13:35 00:05 WBC RBC Hgb Hct Plt Count MPV Neut % (Auto) Lymph % (Auto) Lymph # (Auto) Absolute Neutrophils VBG Lactic Acid Sodium 130 L Potassium 3.2 L Chloride 95 L Carbon Dioxide BUN 29 H Creatinine 1.7 H Calcium 8.5 L Magnesium Lactate Dehydrogenase C-Reactive Protein 26.40 H Albumin Globulin Albumin/Globulin Ratio Triglycerides Urine Appearance Cloudy A Urine Protein 100 A Urine Occult Blood 3+(large) A Ur Leukocyte Esterase 3+(large) A Urine RBC 58 H Urine WBC > 182 H Urine Bacteria Few A Meds: Medications Acetaminophen (Acetaminophen 500 Mg Tablet) 500 mg PO Q6HP PRN PRN Reason: Pain Last Admin: 05/31/20 18:53 Dose: 500 mg Documented by: Docusate Sodium (Docusate Sodium 100 Mg Capsule) 100 mg PO BID PENDING SALE TO [facility] Last Admin: 06/01/20 07:13 Dose: Not Given Documented by: Fenofibrate (Fenofibrate 43 Mg Capsule) 129 mg PO DAILY PENDING SALE TO [facility] Last Admin: 06/01/20 07:13 Dose: 129 mg Documented by: Ferrous Sulfate (Ferrous Sulfate 325 Mg Tablet) 325 mg PO [facility] Last Admin: 06/01/20 07:13 Dose: 325 mg Documented by: Heparin Sodium (Porcine) (Heparin 5,000 Unit/Ml Vial) 5,000 unit SQ Q12 PENDING SALE TO [facility] Last Admin: 06/01/20 07:13 Dose: 5,000 unit Documented by: Sodium Chloride (Sodium Chloride 0.9%) 1,000 mls @ 100 mls/hr IV .Q10H PENDING SALE TO [facility] Last Admin: 06/01/20 09:27 Dose: 100 mls/hr Documented by: Piperacillin Sod/Tazobactam (Sod 2.25 gm/ Dextrose) 50 mls @ 100 mls/hr IV Q6H PENDING SALE TO [facility] Last Infusion: 06/01/20 06:24 Dose: Infused Documented by: Lactulose (Lactulose 20 Gm/30 Ml Oral.Yolanda) 10 gm PO DAILYP PRN PRN Reason: Constipation Levothyroxine Sodium (Levothyroxine Sodium 112 Mcg Tablet) 112 mcg PO [facility] Last Admin: 06/01/20 07:13 Dose: 112 mcg Documented by: Ondansetron HCl (Ondansetron 4 Mg/2 Ml Vial) 4 mg IV Q4HP PRN; Protocol PRN Reason: Nausea And Vomiting Senna (Sennosides 1 Tablet) 2 tab PO HSP PRN PRN Reason: Constipation Sodium Chloride (0.9 % Sodium Chloride 10 Ml Syringe) 10 ml IV Q8 ROSITA Last Admin: 06/01/20 05:44 Dose: Not Given Documented by: A/P Assessment and plan (1) UTI (urinary tract infection): Status: Acute Comment: #1 continue current antibiotics pending results of sensitivities 2. Can discharge on oral antibiotics when cleared of other medical problems 3. Schedule nuclear renal scan with differential functions as an outpatient at [facility] 4. Follow-up here after the renal scan Narrative A/P Narrative: Assessment: 79 year old male with a history of CAD s/p CABG, hypothyroidism, colon cancer s/p chemotherapy and surgical resection w/ colostomy placement in the (no known recurrence), peripheral vascular disease (reported stents), renal stones, who has a chronic Hickman catheter for urinary retention presented to the [facility] ED for unintentional weight loss (over 40 lbs in the l ast year) and subsequently transferred to [facility] for concern of possible pyelonephritis in the setting of right hydronephrosis and hx of renal stones but no obstructing stone seen on the CT abd/pelvis. Urology consulted and did not recommend cystoscopy since there was not obstructing stone on CT scan and the patient reported a previous cystoscopy that showed an open right ureter. Urology feels this is likely chronic residual hydronephrosis. On Zosyn, awaiting cultures. Blood cultures grew gram negative bacillus 2/2 bottles. Urine culture still pending. #Failure to thrive: probably from chronic pyelonephritis, improved appetite #Pyelonephritis #Gram negative bacteremia #Acute kidney injury: resolving, unknown baseline renal function but probably has CKD #Severe right hydronephrosis: probably chronic #Atrophic left kidney #Hx of renal stones #CAD s/p CABG: stable #Hx of colon cancer s/p chemotherapy and resection #Hx of colostomy #Hx of neurogenic bladder #Hx chronic hickman catheter #Hypothyroidism #Thrombocytopenia #Decubitus pressure wound Plan -Zosyn, follow urine and blood cultures-probably prolonged oral antibiotic therapy at discharge since he has bacteremia and renal stones with urology follow up. -IV fluid for JAY-monitor volume status. -Follow renal function and urine output. -Avoid nephrotoxic meds, holding home spironolactone (not sure if taking). -Urology following-no procedures planned, rec outpatient nuclear renogram (not available at [facility] but probably available at [facility]), follow up with urology after discharge. -Regular diet -Nutrition following -Follow CBC, consider holding heparin if platelets drop further. -Levothyroxine -Wound care consult for decubitus wound. -PT/OT -DVT ppx: heparin -Disposition: probably SNF Time Spent With Patient Time: Total time spent is greater than 50% in coordination of care (as documented) at patient's floor/unit and/or counseling patient:
--- NOTE | 2020-06-01 13:26 | Internal Med Progress Note ---
SUBJECTIVE Subjective Patient information: Note initiated : 06/01/20 at 1:18 pm Service Date, if different from initiated Date: [] Patient: Clemente Boyer 79 y/o M admitted on 05/30/20 for chronic pylonephritis. Chief Complaint: [] Principal diagnosis: Failure to thrive Interval history: Mr. Boyer is a 79 year old male with a history of coronary artery disease status post CABG, colon cancer status post chemotherapy and res ection and colostomy placement, chronic Hickman catheter for urinary retention, peripheral vascular disease, hypothyroidism who was sent to the [facility] emergency department for evaluation of a 40 to 50 pound unintentional weight loss over the last year. In the emergency department, there was concern for possible pyelonephritis, possible ureteral stone. The patient was transferred to [facility] for possible urologic intervention. Per the available records, work-up in the ED was remarkable for leukocytosis, acute kidney injury, urinalysis positive for leukocyte esterase and moderate urine bacteria, negative for nitrates. The source of the urinalysis is on clear, the patient does have a Hickman catheter and bag. He does not recall when the Hickman catheter was last exchanged. Reportedly, a CT abdomen and pelvis was done in the ED however the report did not accompany the patient. On arrival to [facility], the patient is afebrile but does have a high-grade temperature. Respiratory rate in the 20s saturating on room air, the patient does not appear to be in any distress. Vitals otherwise unremarkable. The patient appears cachectic. [place] and follows at the [facility] for primary [place]. The patient says that about 3 months ago he lost his appetite. Since then his weight loss has accelerated. Patient denies abdominal pain however says he does have chronic epigastric discomfort. There does not appear to be any association with food. He denies fevers and night sweats but says he often gets chilled. He also says that he has been feeling more short of breath recently, it does appear to be worse when he is lying flat. Chest x-ray report from [facility] did not show any acute process. 05/31 Feels a little better, had a fever this morning, hemodynamically stable. Reviewed CT scan report from [facility]-severe right hydronephrosis and hydroureter without evidence of obstructing stone. Urology consulted and will consider a scope for tomorrow for possible stent for hydronephrosis. Ok for diet today. 06/01 Continued improvement in appetite and generally feeling much better. Urology feels hydronephrosis is chronic, does not plan on procedural intervention at this time and recommended a differential function nuclear renogram study but not available at [facility]. It could be done after discharge [facility]. Renal function improving, hypokalemia and hypomagnesemia replaced. Continues on Zosyn. 06/02 Constitutional Vitals: Vital Signs Temp Pulse Resp BP Pulse Ox 98.7 F 72 23 H 116/66 96 06/01/20 12:01 05/31/20 14:30 06/01/20 12:11 06/01/20 12:01 06/01/20 12:01 Period Temp Pulse Resp BP Sys/Santiago Pulse Ox Last 24 Hr 97.8 F-99.0 F 72 16-35 95-133/57-81 95-98 Intake and Output 05/31/20 06/01/20 06/01/20 21:59 05:59 13:59 Intake Total 4049 035 5873 Output Total 950 500 425 Balance 346 457 6078 Weight 51.301 kg Intake & Output: Intake & Output 05/31/20 06/01/20 06/01/20 21:59 05:59 13:59 Intake Total 3594 852 2668 Output Total 950 500 425 Balance 297 232 7657 Weight 51.301 kg Intake: Nourishment/Supplement quantity 225 (ml) IV 1050 50 1050 Sodium Chloride 0.9% 1,000 ml @ 1000 1000 100 mls/hr IV .Q10H ROSITA Rx#: [id number] Zosyn 2.25 gm In Dextrose 5% in 50 50 50 Water 50 ml @ 100 mls/hr IV Q6H ROSITA Rx#:[id number] Oral 381 836 6302 Output: Urine Catheter Amount 600 500 Stool 350 425 Other: Meal Dinner Breakfast Percent of Meal Consumed 0% 75% Feeding Ability Assist with Tray Set Up Nourishment/Supplement name Ensure Urine Appearance Cloudy Cloudy Sediment Uretheral (Hickman) Cloudy Cloudy Clear Sediment Urine Color Light Dahiana Bright Yellow Uretheral (Hickman) Bright Yellow Bright Yellow Straw Urine Odor Strong Uretheral (Hickman) Strong Stool Size Copious Stool Color Yellow Brown Green Green Stool Consistency Liquid Liquid Watery Exam: General: Alert, Awake, No acute Distress Eyes/N/T: EOMI, Head/Neck: neck supple, CV: RRR, No murmurs, Pulm: Clear b/l, no wheezing/rhonchi/rales Abd: soft, nontender, +BS x4, colostomy present Ext: no clubbing/cyanosis/edema Neuro: Alert, no focal deficits, moves all extremities, Skin: warm/dry OBJ DATA Labs CBC & Chem 7: 06/01/20 05:08 06/01/20 05:07 Labs: Abnormal Lab Results 06/01/20 06/01/20 05/31/20 05:08 05:07 10:27 WBC RBC 3.64 L Hgb 11.2 L Hct 34.8 L Plt Count 106 L MPV 10.6 H Neut % (Auto) 91.6 H Lymph % (Auto) 3.1 L Lymph # (Auto) 0.19 L Absolute Neutrophils VBG Lactic Acid 2.2 H Sodium Potassium 3.0 L Chloride Carbon Dioxide BUN 27 H Creatinine 1.5 H Calcium 8.2 L Magnesium 1.4 L Lactate Dehydrogenase C-Reactive Protein Albumin 2.5 L Globulin 3.8 H Albumin/Globulin Ratio 0.7 L Triglycerides 166 H Urine Appearance Urine Protein Urine Occult Blood Ur Leukocyte Esterase Urine RBC Urine WBC Urine Bacteria 05/31/20 05/31/20 05/30/20 05:07 05:07 20:46 WBC 14.7 H RBC 3.77 L Hgb 11.7 L Hct 35.4 L Plt Count 129 L MPV 10.7 H Neut % (Auto) 95.9 H Lymph % (Auto) 0.8 L Lymph # (Auto) 0.12 L Absolute Neutrophils 14.09 H VBG Lactic Acid 2.2 H Sodium Potassium Chloride Carbon Dioxide 18 L BUN 26 H Creatinine 1.8 H Calcium 8.1 L Magnesium 1.3 L Lactate Dehydrogenase 332 H C-Reactive Protein Albumin 2.6 L Globulin 4.2 H Albumin/Globulin Ratio 0.6 L Triglycerides Urine Appearance Urine Protein Urine Occult Blood Ur Leukocyte Esterase Urine RBC Urine WBC Urine Bacteria 05/30/20 05/30/20 05/30/20 20:45 13:35 00:05 WBC RBC Hgb Hct Plt Count MPV Neut % (Auto) Lymph % (Auto) Lymph # (Auto) Absolute Neutrophils VBG Lactic Acid Sodium 130 L Potassium 3.2 L Chloride 95 L Carbon Dioxide BUN 29 H Creatinine 1.7 H Calcium 8.5 L Magnesium Lactate Dehydrogenase C-Reactive Protein 26.40 H Albumin Globulin Albumin/Globulin Ratio Triglycerides Urine Appearance Cloudy A Urine Protein 100 A Urine Occult Blood 3+(large) A Ur Leukocyte Esterase 3+(large) A Urine RBC 58 H Urine WBC > 182 H Urine Bacteria Few A Meds: Medications Acetaminophen (Acetaminophen 500 Mg Tablet) 500 mg PO Q6HP PRN PRN Reason: Pain Last Admin: 05/31/20 18:53 Dose: 500 mg Documented by: Docusate Sodium (Docusate Sodium 100 Mg Capsule) 100 mg PO BID [facility] Last Admin: 06/01/20 07:13 Dose: Not Given Documented by: Fenofibrate (Fenofibrate 43 Mg Capsule) 129 mg PO DAILY [facility] Last Admin: 06/01/20 07:13 Dose: 129 mg Documented by: Ferrous Sulfate (Ferrous Sulfate 325 Mg Tablet) 325 mg PO [facility] Last Admin: 06/01/20 07:13 Dose: 325 mg Documented by: Heparin Sodium (Porcine) (Heparin 5,000 Unit/Ml Vial) 5,000 unit SQ Q12 [facility] Last Admin: 06/01/20 07:13 Dose: 5,000 unit Documented by: Sodium Chloride (Sodium Chloride 0.9%) 1,000 mls @ 100 mls/hr IV .Q10H [facility] Last Admin: 06/01/20 09:27 Dose: 100 mls/hr Documented by: Piperacillin Sod/Tazobactam (Sod 2.25 gm/ Dextrose) 50 mls @ 100 mls/hr IV Q6H [facility] Last Admin: 06/01/20 12:24 Dose: 100 mls/hr Documented by: Lactulose (Lactulose 20 Gm/30 Ml Oral.Yolanda) 10 gm PO DAILYP PRN PRN Reason: Constipation Levothyroxine Sodium (Levothyroxine Sodium 112 Mcg Tablet) 112 mcg PO [facility] Last Admin: 06/01/20 07:13 Dose: 112 mcg Documented by: Ondansetron HCl (Ondansetron 4 Mg/2 Ml Vial) 4 mg IV Q4HP PRN; Protocol PRN Reason: Nausea And Vomiting Senna (Sennosides 1 Tablet) 2 tab PO HSP PRN PRN Reason: Constipation Sodium Chloride (0.9 % Sodium Chloride 10 Ml Syringe) 10 ml IV Q8 [facility]ITA Last Admin: 06/01/20 05:44 Dose: Not Given Documented by: A/P Narrative A/P Narrative: Assessment: #Failure to thrive: probably from chronic pyelonephritis, improved appetite #Pyelonephritis: #Bacteremia (Providencia rettgeri): 2/2 above #JAY on likely CKD: resolving, unknown baseline renal function but probably has CKD #Severe right hydronephrosis: probably chronic #Atrophic left kidney #Hx of renal stones #CAD s/p CABG: stable #Hx of colon cancer s/p chemotherapy and resection -with colostomy #Hx of neurogenic bladder -chronic hickman catheter #Hypothyroidism: #Thrombocytopenia" #Decubitus pressure wound: Plan -Zosyn, pending final BC/UC -prolonged antibiotic course 14-day d/t bacteremia/renal stones w/urology follow up. Cefixime qd or cefpodoxime 200 bid -IV fluid for JAY-monitor volume status. -Follow renal function and urine output. -Avoid nephrotoxic meds, holding home spironolactone (not sure if taking). -Urology following-no procedures planned, rec outpatient nuclear renogram (not available @[facility] but probably available at [facility]), follow up with urology after discharge. -hickman catheter replaced, f/u with urology -Regular diet -Nutrition following -Follow CBC, consider holding heparin if platelets drop further. -Wound care consult for decubitus wound. -PT/OT -Disposition probably SNF -DVT ppx: heparin Time Spent With Patient Time: Total time spent is greater than 50% in coordination of care (as documented) at patient's floor/unit and/or counseling patient:
[2020-06-01] MEDS ORDERED: LACTULOSE 20 GM/30 ML ORAL.SOL PO PRN (14:47)
[2020-06-01] MEDS ORDERED: ONDANSETRON 4 MG/2 ML VIAL IV PRN (14:47)
[2020-06-01] MEDS ORDERED: SENNOSIDES 1 TABLET PO PRN (14:47)
[2020-06-01] MEDS ORDERED: 0.9 % SODIUM CHLORIDE 1,000 ML IV SCH (14:47)
[2020-06-01] MEDS ORDERED: ACETAMINOPHEN 500 MG TABLET PO PRN (14:47)
--- NOTE | 2020-06-01 17:11 | General Surgery Consult Note ---
HPI Data of Consult Consult date: 06/01/20 Requesting physician: Sathish Buchanan Primary Care Provider: Debbie Choi Consult Narrative Patient Information: Note initiated : 06/01/20 at 4:45 pm Service Date, if different from initiated Date: [] Patient: Clemente Boyer 79 y/o M admitted on 05/30/20 for chronic pylonephritis. Chief Complaint: [] Chief complaint: Wound care evaluation for sacral pressure ulcer versus dermatitis. Reason for consult: I saw Mr Boyer in room 118 along with Gwyn BAILEY, In Patient wound care nurse cc:: CC: Sathish Buchanan MD I reviewed patient's EHR notes and input of Dr Ramesh MD Urologist. Went over notes from his encounter at [facility], before he was transferred to [facility] for UROLOGY consultation and management. This is a gentleman with long standing h/o of multiple problems and an acute episode of UROSEPSIS pyelonephritis. Non contrast CT scan of abdomen and pelvis revealed RIGHT sided hydronephrosis and hydroureter. He has improved with aggressive medical management and empiric IV antibiotics. Outpatient nuclear scan study is recommended by the Urologist to assess his renal functional status. Patient's PMH is significant for CABG, Colon cancer with colostomy and recent acute santiago loss, preceding this episode of urosepsis. PFSH PFSH All Active Problems Hydronephrosis (Acute) UTI (urinary tract infection) (Acute) Decubitus ulcer (Acute) Dyspnea (Acute) Acute kidney injury (Acute) Leukocytosis (Acute) Failure to thrive (Acute) Medical History Colon cancer Coronary artery disease Peripheral vascular disease Surgical History Hx of CABG Family History Father Coronary artery disease Mother Leukemia Coronary artery disease Social History smoking status: Former smoker MEDS/ALLERGIES Home Medications and Allergies Home Medications Medication Instructions Recorded Confirmed Type acetaminophen 500 mg PO Q6H PRN 05/31/20 05/31/20 History ascorbic acid (vitamin C) 250 mg PO QAM 05/31/20 05/31/20 History fenofibrate 145 mg PO QAM 05/31/20 05/31/20 History ferrous sulfate 325 mg PO QDAY 05/31/20 05/31/20 History hydrocodone-acetaminophen 1 tab PO QDAY PRN 05/31/20 05/31/20 History levothyroxine 112 mcg PO QAM 05/31/20 05/31/20 History magnesium oxide 400 mg PO BID PRN 05/31/20 05/31/20 History ondansetron HCl 4 mg PO QDAY PRN 05/31/20 05/31/20 History oxybutynin chloride 5 mg PO QDAY 05/31/20 05/31/20 History spironolactone 25 mg PO QDAY 05/31/20 05/31/20 History Allergies Allergy/AdvReac Type Severity Reaction Status Date / Time cephalexin AdvReac Intermediate Hallucinati Verified 05/31/20 06:53 ng doxycycline AdvReac Intermediate Hallucinati Verified 05/31/20 06:53 ng morphine AdvReac Intermediate Hallucinati Verified 05/31/20 06:53 ng [id number] Reductase AdvReac Intermediate Muscle Pain Verified 05/31/20 07:10 Inhibitor Cephalosporins AdvReac Mild Sun Verified 05/31/20 06:12 Sensitivity Physical Examination Vital Signs Vital signs: Temp Pulse Resp BP Pulse Ox 98.6 F 72 16 129/69 99 06/01/20 16:00 06/01/20 16:00 06/01/20 16:00 06/01/20 16:00 06/01/20 16:00 General physical appearance General physical exam: no distress, no pain, cachectic, chronically ill and other (UNINTENTIONAL Weight loss > 40 lbs. ) Eyes Eye exam: PERRL and normal ocular movement ENT ENT exam: normal pinna, normal mucosa, no hearing loss and no congestion Head Head exam IM: Present atraumatic and normocephalic Neck Neck exam: no masses, trachea midline and no venous distension Cardiovascular Cardiovascular exam IM: Present normal rate and rhythm Respiratory Respiratory exam: normal expansion, normal respiratory effort and clear to auscultation Abdomen Abdomen: Present soft, non tender, bowel sounds and wound (COLOSTOMY functioning soft well formed stool in bag) Genitourinary Genitourinary (Male): Present normal penis with no external lesions and other (Foely catheter . Clear urine) Integumentary Integumentary: Present other (NO evidence of skin breakdown or pressure ulcers. Sacral area pressure pont site is intact. NO fecal or urinary contamination. ) Neurologic Neurologic: Present normal coordination, normal sensation and other (Unremarkable and NON focal neurological examination.) Musculoskeletal Musculoskeletal: Present other (Moves well in bed. Did not see him sit or stand. ) Psychiatric Psychiatric: Present oriented to time, oriented to person, oriented to place, speech is normal and memory intact Results Labs Result diagrams: 06/02/20 05:26 06/02/20 05:27 Labs: Abnormal lab results 06/01/20 06/01/20 Range/Units 05:07 05:08 RBC 3.64 L (4.50-5.90) M/mcL Hgb 11.2 L (13.5-16.5) g/dL Hct 34.8 L (41.0-55.0) % Plt Count 106 L (140-440) K/mcL MPV 10.6 H (7.4-10.4) fL Neut % (Auto) 91.6 H (38.0-78.0) % Lymph % (Auto) 3.1 L (15.0-49.0) % Lymph # (Auto) 0.19 L (1.50-4.80) K/mcL Potassium 3.0 L (3.3-5.1) mmol/L BUN 27 H (8-23) mg/dL Creatinine 1.5 H (0.7-1.2) mg/dL Calcium 8.2 L (8.6-10.4) mg/dL Magnesium 1.4 L (1.6-2.5) mg/dL Albumin 2.5 L (3.2-5.2) gm/dL Globulin 3.8 H (2.2-3.7) gm/dL Albumin/Globulin Ratio 0.7 L (1.0-2.3) Triglycerides 166 H (<150) mg/dL Diabetes panel 06/01/20 Range/Units 05:07 Sodium 134 (133-145) mmol/L Potassium 3.0 L (3.3-5.1) mmol/L Chloride 101 (96-108) mmol/L Carbon Dioxide 23 (22-30) mmol/L BUN 27 H (8-23) mg/dL Creatinine 1.5 H (0.7-1.2) mg/dL Glucose 98 (70-105) mg/dL Calcium 8.2 L (8.6-10.4) mg/dL AST 32 (<40) U/L ALT 11 (<40) U/L Alkaline Phosphatase 76 (39-117) U/L Total Protein 6.3 (5.9-8.4) gm/dL Albumin 2.5 L (3.2-5.2) gm/dL Triglycerides 166 H (<150) mg/dL Calcium panel 06/01/20 Range/Units 05:07 Calcium 8.2 L (8.6-10.4) mg/dL Phosphorus 2.5 (2.5-4.5) mg/dL Albumin 2.5 L (3.2-5.2) gm/dL Pituitary panel 06/01/20 Range/Units 05:07 Sodium 134 (133-145) mmol/L Potassium 3.0 L (3.3-5.1) mmol/L Chloride 101 (96-108) mmol/L Carbon Dioxide 23 (22-30) mmol/L BUN 27 H (8-23) mg/dL Creatinine 1.5 H (0.7-1.2) mg/dL Glucose 98 (70-105) mg/dL Calcium 8.2 L (8.6-10.4) mg/dL Adrenal panel 06/01/20 Range/Units 05:07 Sodium 134 (133-145) mmol/L Potassium 3.0 L (3.3-5.1) mmol/L Chloride 101 (96-108) mmol/L Carbon Dioxide 23 (22-30) mmol/L BUN 27 H (8-23) mg/dL Creatinine 1.5 H (0.7-1.2) mg/dL Glucose 98 (70-105) mg/dL Calcium 8.2 L (8.6-10.4) mg/dL Total Bilirubin 0.3 (0.1-1.0) mg/dL AST 32 (<40) U/L ALT 11 (<40) U/L Alkaline Phosphatase 76 (39-117) U/L Total Protein 6.3 (5.9-8.4) gm/dL Albumin 2.5 L (3.2-5.2) gm/dL All other labs normal. A/P Narrative A/P Narrative: Assessment: Urosepsis ACUTE episode improved with aggressive medical management. Urologist on board and plans for out patient work up noted. NO open skin wounds or pressure ulcers at this time. Plan: Agree with current management. Needs close monitoring of pressure points and protective dressings. Will see patient PRN during his hospital stay. He was scheduled to be seen in wound care clinic earlier. To reschedule his appointment after discharge. Time Spent With Patient Time: Total time spent is greater than 50% in coordination of care (as documented) at patient's floor/unit and/or counseling patient: Total time spent with greater than 50% in coordination of care (as documented) at patient's floor/unit and/or counseling patient:: Greater than 35 minutes
[2020-06-01 18:44] LABS: Blood Urea Nitrogen 26 mg/dL (8-23); Calcium 8.2 mg/dL (8.6-10.4); Carbon Dioxide 22 mmol/L (22-30); Chloride 101 mmol/L (96-108); Glomerular Filtration Rate 51; Glucose 105 mg/dL (70-105)
[2020-06-01] MEDS ORDERED: POTASSIUM CHLORIDE 40 MEQ in DEXTROSE 5% IN WATER 500 ML IV ONE (19:13)
[2020-06-01] MEDS ORDERED: POTASSIUM CHLORIDE 20 MEQ/10 ML VIAL IV ONE (20:15)
[2020-06-01] MEDS ORDERED: HEPARIN 5,000 UNIT/ML VIAL SQ SCH (21:00)
[2020-06-02] MEDS: PIPERACILLIN SODIUM/TAZOBACTAM 2.25 GM in DEXTROSE 5% IN WATER 50 ML IV SCH ×2 (00:22→06:35)
[2020-06-02] MEDS: 0.9 % SODIUM CHLORIDE 10 ML SYRINGE IV SCH ×3 (01:23→13:51)
[2020-06-02 06:38] LABS: Basophils # (Auto) 0.02 K/mcL (0.00-0.20); Basophils % (Auto) 0.3 % (0.0-2.0); Eosinophils # (Auto) 0.08 K/mcL (0.00-0.70); Eosinophils % (Auto) 1.3 % (0.0-7.0); Hematocrit 33.6 % (41.0-55.0); Hemoglobin 10.8 g/dL (13.5-16.5); Lymphocytes # (Auto) 0.29 K/mcL (1.50-4.80); Lymphocytes % (Auto) 4.5 % (15.0-49.0); Mean Cell Volume 94.9 fL (80.0-100.0); Mean Corpuscular HGB Conc 32.1 g/dL (31.0-36.0); Mean Platelet Volume 10.8 fL (7.4-10.4); Monocytes % (Auto) 7.8 % (1.0-12.0); Neutrophils % (Auto) 86.1 % (38.0-78.0); Platelet Count 98 K/mcL (140-440); RBC 3.54 M/mcL (4.50-5.90); Red Cell Distribution Width 14.5 % (11.5-14.5); WBC 6.4 K/mcL (4.5-11.0)
[2020-06-02] MEDS ORDERED: LEVOTHYROXINE SODIUM 112 MCG TABLET PO SCH (07:30)
[2020-06-02] MEDS ORDERED: FERROUS SULFATE 325 MG TABLET PO SCH (08:00)
[2020-06-02 08:03] LABS: ALT/SGPT 12 U/L (<40); AST/SGOT 21 U/L (<40); Albumin 2.5 gm/dL (3.2-5.2); Albumin/Globulin Ratio 0.7 (1.0-2.3); Alkaline Phosphatase 68 U/L (39-117); Bilirubin,Direct < 0.2 mg/dL (<0.3); Bilirubin,Total 0.3 mg/dL (0.1-1.0); Blood Urea Nitrogen 21 mg/dL (8-23); Calcium 8.4 mg/dL (8.6-10.4); Carbon Dioxide 22 mmol/L (22-30); Chloride 104 mmol/L (96-108); Globulin 3.4 gm/dL (2.2-3.7); Glomerular Filtration Rate 46; Glucose 107 mg/dL (70-105); Lactate Dehydrogenase 239 U/L (135-225); Phosphorous 1.8 mg/dL (2.5-4.5); Triglycerides 192 mg/dL (<150); Uric Acid 3.1 mg/dL (2.5-8.0)
--- NOTE | 2020-06-02 08:12 | Internal Med Progress Note ---
SUBJECTIVE Subjective Patient information: Note initiated : 06/02/20 at 8:06 am Service Date, if different from initiated Date: [] Patient: Clemente Boyer 79 y/o M admitted on 05/30/20 for chronic pylonephritis. Chief Complaint: [] Principal diagnosis: Failure to thrive Interval history: Mr. Boyer is a 79 year old male with a history of coronary artery disease status post CABG, colon cancer status post chemotherapy and res ection and colostomy placement, chronic Hickman catheter for urinary retention, peripheral vascular disease, hypothyroidism who was sent to the [facility] emergency department for evaluation of a 40 to 50 pound unintentional weight loss over the last year. In the emergency department, there was concern for possible pyelonephritis, possible ureteral stone. The patient was transferred to [facility] for possible urologic intervention. Per the available records, work-up in the ED was remarkable for leukocytosis, acute kidney injury, urinalysis positive for leukocyte esterase and moderate urine bacteria, negative for nitrates. The source of the urinalysis is on clear, the patient does have a Hickman catheter and bag. He does not recall when the Hickman catheter was last exchanged. Reportedly, a CT abdomen and pelvis was done in the ED however the report did not accompany the patient. On arrival to [facility], the patient is afebrile but does have a high-grade temperature. Respiratory rate in the 20s saturating on room air, the patient does not appear to be in any distress. Vitals otherwise unremarkable. The patient appears cachectic. He lives alone in the [place] and follows at the [place] for primary care. The patient says that about 3 months ago he lost his appetite. Since then his weight loss has accelerated. Patient denies abdominal pain however says he does have chronic epigastric discomfort. There does not appear to be any association with food. He denies fevers and night sweats but says he often gets chilled. He also says that he has been feeling more short of breath recently, it does appear to be worse when he is lying flat. Chest x-ray report from [facility] did not show any acute process. 05/31 Feels a little better, had a fever this morning, hemodynamically stable. Reviewed CT scan report from [facility]-severe right hydronephrosis and hydroureter without evidence of obstructing stone. Urology consulted and will consider a scope for tomorrow for possible stent for hydronephrosis. Ok for diet today. 06/01 Continued improvement in appetite and generally feeling much better. Urology feels hydronephrosis is chronic, does not plan on procedural intervention at this time and recommended a differential function nuclear renogram study but not available at [facility]. It could be done after discharge [facility]. Renal function improving, hypokalemia and hypomagnesemia replaced. Continues on Zosyn. 06/02 Feeling much better from couple days ago. No new complaints overnight events. Renal function stable. Bacteremia identified and secondary to pathology. Patient will follow up with urology. Review of Systems: denies headache/fever/chills/nausea/vomiting/chest or abdominal pa in/cough/dyspnea/diarrhea. Otherwise see above. Constitutional Vitals: Vital Signs Temp Pulse Resp BP Pulse Ox 98.1 F 60 16 127/72 98 06/02/20 06:53 06/02/20 06:53 06/02/20 06:53 06/02/20 06:53 06/02/20 06:53 Period Temp Pulse Resp BP Sys/Santiago Pulse Ox Last 24 Hr 97.6 F-98.7 F 57-74 16-41 101-132/58-81 96-99 Intake and Output 06/01/20 06/02/20 06/02/20 21:59 05:59 13:59 Intake Total 988 1170 Output Total 1200 1101 Balance -212 69 Weight 49.668 kg Intake & Output: Intake & Output 06/01/20 06/02/20 06/02/20 21:59 05:59 13:59 Intake Total 988 1170 Output Total 1200 1101 Balance -212 69 Weight 49.668 kg Intake: IV 988 570 Sodium Chloride 0.9% 1,000 ml @ 938 100 mls/hr IV .Q10H ROSITA Rx#: [id number] Zosyn 2.25 gm In Dextrose 5% in 50 50 Water 50 ml @ 100 mls/hr IV Q6H ROSITA Rx#:[id number] Potassium Chloride 40 Meq In 520 Dextrose 5% in Water 500 ml @ 130 mls/hr IV ONCE ONE Rx#: [id number] Oral 600 Output: Urine Catheter Amount 600 1000 # of times incontinent of urine 1 Stool 600 100 Other: Urine Appearance Clear Clear Sediment Uretheral (Hickman) Clear Sediment Urine Color Bright Yellow Bright Yellow Uretheral (Hickman) Bright Yellow Stool Size Moderate Stool Color Brown Stool Consistency Liquid Exam: General: Alert, Awake, No acute Distress, Eyes/N/T: EOMI, Head/Neck: neck supple, CV: RRR, No murmurs, Pulm: Clear b/l, no wheezing/rhonchi/rales Abd: soft, nontender, +BS x4, colostomy present Ext: no clubbing/cyanosis/edema Neuro: Alert, no focal deficits, moves all extremities, Skin: warm/dry OBJ DATA Labs CBC & Chem 7: 06/02/20 05:26 06/02/20 05:27 Labs: Abnormal Lab Results 06/02/20 06/02/20 06/01/20 05:27 05:26 17:06 WBC RBC 3.54 L Hgb 10.8 L Hct 33.6 L Plt Count 98 L MPV 10.8 H Neut % (Auto) 86.1 H Lymph % (Auto) 4.5 L Lymph # (Auto) 0.29 L Absolute Neutrophils VBG Lactic Acid Sodium Potassium 2.9 L* Chloride Carbon Dioxide BUN 26 H Creatinine 1.4 H 1.3 H Glucose 107 H Calcium 8.4 L 8.2 L Phosphorus 1.8 L Magnesium Lactate Dehydrogenase 239 H C-Reactive Protein Albumin 2.5 L Globulin Albumin/Globulin Ratio 0.7 L Triglycerides 192 H Urine Appearance Urine Protein Urine Occult Blood Ur Leukocyte Esterase Urine RBC Urine WBC Urine Bacteria 06/01/20 06/01/20 05/31/20 05:08 05:07 10:27 WBC RBC 3.64 L Hgb 11.2 L Hct 34.8 L Plt Count 106 L MPV 10.6 H Neut % (Auto) 91.6 H Lymph % (Auto) 3.1 L Lymph # (Auto) 0.19 L Absolute Neutrophils VBG Lactic Acid 2.2 H Sodium Potassium 3.0 L Chloride Carbon Dioxide BUN 27 H Creatinine 1.5 H Glucose Calcium 8.2 L Phosphorus Magnesium 1.4 L Lactate Dehydrogenase C-Reactive Protein Albumin 2.5 L Globulin 3.8 H Albumin/Globulin Ratio 0.7 L Triglycerides 166 H Urine Appearance Urine Protein Urine Occult Blood Ur Leukocyte Esterase Urine RBC Urine WBC Urine Bacteria 05/31/20 05/31/20 05/30/20 05:07 05:07 20:46 WBC 14.7 H RBC 3.77 L Hgb 11.7 L Hct 35.4 L Plt Count 129 L MPV 10.7 H Neut % (Auto) 95.9 H Lymph % (Auto) 0.8 L Lymph # (Auto) 0.12 L Absolute Neutrophils 14.09 H VBG Lactic Acid 2.2 H Sodium Potassium Chloride Carbon Dioxide 18 L BUN 26 H Creatinine 1.8 H Glucose Calcium 8.1 L Phosphorus Magnesium 1.3 L Lactate Dehydrogenase 332 H C-Reactive Protein Albumin 2.6 L Globulin 4.2 H Albumin/Globulin Ratio 0.6 L Triglycerides Urine Appearance Urine Protein Urine Occult Blood Ur Leukocyte Esterase Urine RBC Urine WBC Urine Bacteria 05/30/20 05/30/20 05/30/20 20:45 13:35 00:05 WBC RBC Hgb Hct Plt Count MPV Neut % (Auto) Lymph % (Auto) Lymph # (Auto) Absolute Neutrophils VBG Lactic Acid Sodium 130 L Potassium 3.2 L Chloride 95 L Carbon Dioxide BUN 29 H Creatinine 1.7 H Glucose Calcium 8.5 L Phosphorus Magnesium Lactate Dehydrogenase C-Reactive Protein 26.40 H Albumin Globulin Albumin/Globulin Ratio Triglycerides Urine Appearance Cloudy A Urine Protein 100 A Urine Occult Blood 3+(large) A Ur Leukocyte Esterase 3+(large) A Urine RBC 58 H Urine WBC > 182 H Urine Bacteria Few A Meds: Medications Acetaminophen (Acetaminophen 500 Mg Tablet) 500 mg PO Q6HP PRN PRN Reason: Pain Last Admin: 06/01/20 19:23 Dose: 500 mg Documented by: Docusate Sodium (Docusate Sodium 100 Mg Capsule) 100 mg PO BID [facility] Last Admin: 06/01/20 20:15 Dose: 100 mg Documented by: Fenofibrate (Fenofibrate 43 Mg Capsule) 129 mg PO DAILY [facility] Ferrous Sulfate (Ferrous Sulfate 325 Mg Tablet) 325 mg PO [facility] Last Admin: 06/02/20 07:24 Dose: 325 mg Documented by: Heparin Sodium (Porcine) (Heparin 5,000 Unit/Ml Vial) 5,000 unit SQ Q12 [facility] Last Admin: 06/01/20 20:14 Dose: 5,000 unit Documented by: Piperacillin Sod/Tazobactam (Sod 2.25 gm/ Dextrose) 50 mls @ 100 mls/hr IV Q6H [facility] Last Admin: 06/02/20 06:35 Dose: 100 mls/hr Documented by: Lactulose (Lactulose 20 Gm/30 Ml Oral.Yolanda) 10 gm PO DAILYP PRN PRN Reason: Constipation Levothyroxine Sodium (Levothyroxine Sodium 112 Mcg Tablet) 112 mcg PO QAMAC [facility] Last Admin: 06/02/20 07:24 Dose: 112 mcg Documented by: Ondansetron HCl (Ondansetron 4 Mg/2 Ml Vial) 4 mg IV Q4HP PRN; Protocol PRN Reason: Nausea And Vomiting Senna (Sennosides 1 Tablet) 2 tab PO HSP PRN PRN Reason: Constipation Sodium Chloride (0.9 % Sodium Chloride 10 Ml Syringe) 10 ml IV Q8 [facility] Last Admin: 06/02/20 06:35 Dose: 10 ml Documented by: A/P Narrative A/P Narrative: Assessment: #Failure to thrive: probably from chronic pyelonephritis, improved appetite #Pyelonephritis: #Bacteremia (Providencia rettgeri): 2/2 above #JAY on likely CKD: resolving, unknown baseline renal function but probably has CKD -stable #Severe right hydronephrosis: probably chronic #Atrophic left kidney #Hx of renal stones #anemia, likely chronic: #CAD s/p CABG: stable #Hx of colon cancer s/p chemotherapy and resection -with colostomy #Hx of neurogenic bladder -chronic hickman catheter #Hypothyroidism: #Thrombocytopenia: #Decubitus pressure wound: Plan -Zosyn, pending final BC/UC -prolonged antibiotic course 14-day d/t bacteremia/renal stones w/urology follow up. Cefixime qd or cefpodoxime 200 bid -d/c IV fluid -Follow renal function and urine output. -Avoid nephrotoxic meds, holding home spironolactone (not sure if taking). -Urology following-no procedures planned, rec outpatient nuclear renogram (not available @[facility] but probably available at [facility]), follow up with urology after discharge. -hickman catheter replaced, f/u with urology -Regular diet -Nutrition following -Follow CBC, consider holding heparin if platelets drop further. -Wound care consult for decubitus wound. f/u outpt Dr. Coburn -PT/OT -Disposition probably SNF -DVT ppx: d/c heparin, SCD placed Time Spent With Patient Time: Total time spent is greater than 50% in coordination of care (as document ed) at patient's floor/unit and/or counseling patient:
[2020-06-02] MEDS: PHOSPHORUS 250 MG TABLET PO SCH ×2 (08:48→13:50)
[2020-06-02] MEDS ORDERED: FENOFIBRATE 43 MG CAPSULE PO SCH (09:00)
[2020-06-02] MEDS: DOCUSATE SODIUM 100 MG CAPSULE PO SCH (09:14)
--- NOTE | 2020-06-02 09:56 | Discharge Summary ---
Discharge Provider Provider Patient information: Note initiated : 06/02/20 at 9:52 am Service Date, if different from initiated Date: [] Patient: Clemente Boyer 79 y/o M admitted on 05/30/20 for chronic pylonephritis. Chief Complaint: [] Date of admission: 05/30/20 19:37 Discharge date: 06/02/20 Primary care physician: Debbie Choi Consults: 05/31/20 10:17 Consult to Physician [CONS] Routine Comment: Right kidney hydronephrosis and hydroureter Consulting Provider: Clemente Dixon Reason For Exam: Physician to Consult 06/01/20 08:20 Consult to Physician [CONS] Routine Comment: Consulting Provider: Edi Mcpherson Reason For Exam: Physician to Consult Discharge Meds Discharge Medications Home Medications acetaminophen 500 mg PO Q6H PRN 05/31/20 [History Confirmed 05/31/20 Last Taken Unknown] ascorbic acid (vitamin C) 250 mg PO QAM 05/31/20 [History Confirmed 05/31/20 Last Taken Unknown] fenofibrate 145 mg PO QAM 05/31/20 [History Confirmed 05/31/20 Last Taken Unknown] ferrous sulfate 325 mg PO QDAY 05/31/20 [History Confirmed 05/31/20 Last Taken Unknown] hydrocodone-acetaminophen 1 tab PO QDAY PRN 05/31/20 [History Confirmed 05/31/20 Last Taken Unknown] levothyroxine 112 mcg PO QAM 05/31/20 [History Confirmed 05/31/20 Last Taken Unknown] magnesium oxide 400 mg PO BID PRN 05/31/20 [History Confirmed 05/31/20 Last Taken Unknown] ondansetron HCl 4 mg PO QDAY PRN 05/31/20 [History Confirmed 05/31/20 Last Taken Unknown] oxybutynin chloride 5 mg PO QDAY 05/31/20 [History Confirmed 05/31/20 Last Taken Unknown] cefpodoxime 200 mg PO BID #22 tab 06/02/20 [Rx Last Taken Unknown] COURSE Hospital Course Hospital course: Principal diagnosis: Failure to thrive Interval history: Mr. Boyer is a 79 year old male with a history of coronary artery disease status post CABG, colon cancer status post chemotherapy and resection and colostomy placement, chronic Hickman catheter for urinary retention, peripheral vascular disease, hypothyroidism who was sent to the [facility] emergency department for evaluation of a 40 to 50 pound unintentional weight loss over the last year. In the emergency department, there was concern for possible pyelonephritis, possible ureteral stone. The patient was transferred to [facility] for possible urologic intervention. Per the available records, work-up in the ED was remarkable for leukocytosis, acute kidney injury, urinalysis positive for leukocyte esterase and moderate urine bacteria, negative for nitrates. The source of the urinalysis is on clear, the patient does have a Hickman catheter and bag. He does not recall when the Hickman catheter was last exchanged. Reportedly, a CT abdomen and pelvis was done in the ED however the report did not accompany the patient. On arrival to [facility], the patient is afebrile but does have a high-grade temperature. Respiratory rate in the 20s saturating on room air, the patient do es not appear to be in any distress. Vitals otherwise unremarkable. The patient appears cachectic. He lives alone in the [place] and follows at the [place] for primary care. The patient says that about 3 months ago he lost his appetite. Since then his weight loss has accelerated. Patient denies abdominal pain however says he does have chronic epigastric discomfort. There does not appear to be any association with food. He denies fevers and night sweats but says he often gets chilled. He also says that he has been feeling more short of breath recently, it does appear to be worse when he is lying flat. Chest x-ray report from [facility] did not show any acute process. 05/31 Feels a little better, had a fever this morning, hemodynamically stable. Reviewed CT scan report from [facility]-severe right hydronephrosis and hydroureter without evidence of obstructing stone. Urology consulted and will consider a scope for tomorrow for possible stent for hydronephrosis. Ok for diet today. 06/01 Continued improvement in appetite and generally feeling much better. Urology feels hydronephrosis is chronic, does not plan on procedural intervention at this time and recommended a differential function nuclear renogram study but not available at [facility]. It could be done after discharge [facility]. Renal function improving, hypokalemia and hypomagnesemia replaced. Continues on Zosyn. 06/02 Feeling much better from couple days ago. No new complaints overnight events. Renal function stable. Bacteremia identified and secondary to pathology. Patient will follow up with urology. *Given age and significant comorbidities patient is high risk for readmission. A/P Narrative: Assessment: #Failure to thrive: probably from chronic pyelonephritis, improved appetite #Pyelonephritis: #Bacteremia (Providencia rettgeri): 2/2 above #JAY on likely CKD: resolving, unknown baseline renal function but probably has CKD -stable #Severe right hydronephrosis: probably chronic #Atrophic left kidney #Hx of renal stones #anemia, likely chronic: #CAD s/p CABG: stable #Hx of colon cancer s/p chemotherapy and resection -with colostomy #Hx of neurogenic bladder -chronic hickman catheter #Hypothyroidism: #Thrombocytopenia: #Decubitus pressure wound: Discharge diagnosis: Failure to thrive pyelonephritis with bacteremia acute kidney injury on chr Secondary discharge diagnosis: Acute kidney injury on chronic kidney disease hydronephrosis likely chronic history of renal stones chronic anemia CAD history of colon cancer history of neurogenic bladder on chronic Hickman hypothyroidism from cytopenia decubitus pressure wounds. Time Spent with Patient Time attestation: Total time spent providing and/or coordinating discharge services: Time spent: Greater than 30 minutes EXAM Constitutional Vitals: Temp Pulse Resp BP Pulse Ox 98.1 F 60 16 127/72 98 06/02/20 06:53 06/02/20 06:53 06/02/20 06:53 06/02/20 06:53 06/02/20 06:53 Discharge Data Data Completed and Pending Labs on day of discharge: Labs from last 24 hours 06/02/20 06/02/20 06/01/20 05:27 05:26 17:06 WBC 6.4 RBC 3.54 L Hgb 10.8 L Hct 33.6 L MCV 94.9 MCH 30.5 MCHC 32.1 RDW 14.5 Plt Count 98 L MPV 10.8 H Neut % (Auto) 86.1 H Lymph % (Auto) 4.5 L Morrow % (Auto) 7.8 Eos % (Auto) 1.3 Baso % (Auto) 0.3 Lymph # (Auto) 0.29 L Morrow # (Auto) 0.50 Eos # (Auto) 0.08 Baso # (Auto) 0.02 Absolute Neutrophils 5.49 Sodium 134 135 Potassium 3.3 2.9 L* Chloride 104 101 Carbon Dioxide 22 22 Anion Gap 8.0 12.0 BUN 21 26 H Creatinine 1.4 H 1.3 H GFR Calculation 46 51 Glucose 107 H 105 Uric Acid 3.1 Calcium 8.4 L 8.2 L Phosphorus 1.8 L Magnesium 1.6 2.0 Total Bilirubin 0.3 Direct Bilirubin < 0.2 GGT 12 AST 21 ALT 12 Alkaline Phosphatase 68 Lactate Dehydrogenase 239 H Total Protein 5.9 Albumin 2.5 L Globulin 3.4 Albumin/Globulin Ratio 0.7 L Triglycerides 192 H Preliminary micro results at discharge 05/30/20 00:06 Urine Culture - Preliminary Urine - Clean Void Mid-Stream Gram negative bacillus Discharge Plan Patient/Caregiver Discharge Instructions Activity: increase activity as tolerated Diet: Regular Diet Activity Restrictions/Additional Instructions: Follow-up with PCP in 3 to 7 days. Ensure supplement 3 times daily. Schedule nuclear renal scan w/differential functions as outpatient @ [facility] per Dr. Dixon. Prescriptions: New cefpodoxime 200 mg tablet 200 mg PO BID Qty: 22 RF: 0 Continued ascorbic acid (vitamin C) 250 mg tablet 250 mg PO QAM RF: 0 magnesium oxide 420 mg tablet 400 mg PO BID PRN (Reason: Acid Reflux) RF: 0 acetaminophen 500 mg capsule 500 mg PO Q6H PRN (Reason: Pain) RF: 0 fenofibrate 120 mg tablet 145 mg PO QAM RF: 0 ferrous sulfate 325 mg (65 mg iron) tablet 325 mg PO QDAY RF: 0 hydrocodone-acetaminophen 7.5-325 mg tablet 1 tab PO QDAY PRN (Reason: Pain) RF: 0 levothyroxine 112 mcg tablet 112 mcg PO QAM RF: 0 ondansetron HCl 4 mg tablet 4 mg PO QDAY PRN (Reason: Nausea) RF: 0 oxybutynin chloride 5 mg tablet extended release 24hr 5 mg PO QDAY RF: 0 Discontinued spironolactone 25 mg tablet 25 mg PO QDAY RF: 0 Follow Up Plan Follow up with: Edi Mcpherson MD [Physician] - Clemente Dixon MD [Physician] - Patient Disposition: Xfer SNF Prognosis: Fair Rehab Potential: Fair I certify that the patient requires SNF services: Yes Overall status at discharge: patient is progressing back to baseline Discharge Orders: Discharge Order (Routine); Ordered 06/02/20 Ordered By: Gokul Velez
[2020-06-02] MEDS ORDERED: cefTRIAXone 2 GM in DEXTROSE 5% IN WATER 50 ML IV SCH (10:00)
== END 2020-06-02 15:30 | DRG 690 ==
LOC: ICU 19:37 → MEDSUR 06-01 15:23
PROVIDERS: ADMIT Internal Medicine; ATTEND Internal Medicine